=== PATIENT | male | born 1985 | race Caucasian/White ===

== ENCOUNTER 2016-05-23 14:39 | Emergency (ER) | payer OTHER ==
--- NOTE | 2016-05-23 16:15 | DIAGNOSTIC IMAGING REPORT ---
PROCEDURE: XR HAND 3 OR 4 VIEWS - RIGHT INDICATION: TRAUMA/INJURY TECHNIQUE: Four views. COMPARISON: None. FINDINGS: Osseous structures and joint spaces are normal. IMPRESSION: 1. Normal osseous structures right hand.
--- NOTE | 2016-05-23 16:30 | ED CLINICAL REPORT ---
Clinical Report - Physicians/Mid Levels [facility] [address] [place] [address] 05/23/2016 14:44 [id number] Time Seen: 15:02; initial patient contact, initial documentation, patient care assumed. Arrived- By private vehicle. Historian- patient. HISTORY OF PRESENT ILLNESS Chief Complaint: Injury to the right hand. The injury happened today. The patient sustained a laceration from a sharp edge (between two pieces of steel). Occurred at work. Patient is experiencing moderate pain. Patient denies injury to the head or neck. No other injury. 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 REVIEW OF SYSTEMS The patient sustained a laceration. No swelling, tingling, numbness, weakness or foreign body. All systems otherwise negative, except as recorded above. PAST HISTORY See nurses notes. PAST MEDICAL HX: Negative. Tetanus status: up-to-date. Last tetanus: (2012). SURGERY HX: Appendectomy. The patient's dominant hand is the left. Tetanus immunization status is up-to-date. SOCIAL HISTORY Never smoker. Occasional alcohol use. No drug use. No recent travel. Is a local resident. He lives with spouse. FAMILY HISTORY No significant family medical history. ADDITIONAL NOTES The nursing notes have been reviewed with agreement regarding the chief complaint, HPI, ROS, PMH and patient medications and allergies. PHYSICAL EXAM Vital Signs: 05/23/2016 15:02 BP: 133/62. HR: 71. RR: 18. O2 saturation: 97%. Temp: 98.2 F. Pain level now: 5/10. Have been reviewed as normal and appear to be correct. Appearance: Alert. Oriented X3. No acute distress. Extremities: Hand injury present. Right index-middle finger web space: moderate tenderness and subcutaneous 5.0 cm laceration. SEE LACERATION PROCEDURE NOTE #1. Neurovascular intact distally. No erythema, swelling, abrasion, ecchymosis or puncture wound. No foreign body or deformity. No limitation in movement. No wrist injury. Hand and wrist exam otherwise negative. Extremities otherwise negative. Neuro, Vascular and Tendons: Vascular status intact. Sensation intact. Motor intact. Tendon function intact. LABS, X-RAYS, AND EKG X-Rays: Right hand negative. Rt Hand X-ray: (IMPRESSION: 1. Normal osseous structures right hand. Electronically Final signed by:Kameron Currie MD 05/23/2016 4:16:05 PM). The X-rays were interpreted by the radiologist and contemporaneously by me. PROGRESS AND PROCEDURES Laceration Repair: Location: right hand. Length: 5 cm. Complexity: simple (local anesthesia used and sutured). Wound depth/shape- subcutaneous, linear and irregular and involving fascia. Contamination present. No foreign body or contused tissue present. No tissue loss. Exam note: with ? grease/oil. Distal neuro/vascular/tendon status normal. Tendon not examined. No tendon deficit or laceration or tendon injury. Local anesthesia provided using 1% lidocaine (8 mL). Prepped with Betadine and Hibiclens. Wound prep- had pt wash hand with hibiclens sponge at sink. Wound explored, cleansed, irrigated and examined to the base in bloodless field extensively with normal saline. Wound not debrided. No foreign material removed. used 500ml ns for irrigation. Closure of skin: interrupted 3-0 nylon (9 sutures). Post-procedure: he is stable and there are no complications. Bleeding is controlled and neuro-vascular status is intact distal to the wound. Clean dressing applied. (per tech/nurse, see other notes). Tetanus immunization up-to-date. Estimated blood loss: 10 mL. Course of Care: 16:30 05/23/16. L&I paperwork completed. 05/23/2016 16:19 BP: 117/46. HR: 68. RR: 18. O2 saturation: 99%. Pain level now: 02/26. Vital Signs: have been reviewed as normal and appear to be correct. Patient counseled in person regarding the patient's stable condition, test results and diagnosis. 16:25. Differential Diagnosis: Other possible considerations: hand lac, fb, skin avulsion, tendon injury, bone injury. Above considerations are based on history, physical exam, reassessment and X-Ray data. Differential diagnosis was discussed with patient. Disposition: Discharged home in good and improved condition (16:30). Condition: good and stable. CLINICAL IMPRESSION Single deep laceration to the right hand.Treatment of laceration not delayed. No infection, foreign body present or right fingernail injury. INSTRUCTIONS Protect wound and keep wound area clean. Change dressing twice daily. Soak in warm soapy water. Apply bacitracin twice daily. Sutures should be removed in fourteen days. Limit use of your right hand for two weeks until released (until sutures are removed). Warnings: GENERAL WARNINGS: Return or contact your physician immediately if your condition worsens or changes unexpectedly, if not improving as expected, or if other problems arise. Specifically return if problem worsens. Prescription Medications: Cephalexin 500 mg: take 1 capsule orally every 12 hours for 10 days. No refill. Ultram 50 mg tablets: take 1-2 orally every 6 hours as needed for pain. Dispense twenty (20). No refills. Substitution is permissible. Follow-up: Follow up with your doctor in about three days for suture removal and wound check. Call for an appointment. Reason for referral: wound needs rechecked in 3 days, and sutures out in 2 weeks, as discussed. Summary of care provided to patient. Understanding of the discharge instructions verbalized by patient. (Electronically signed by Maggie Hargrove A.R.N.P. 05/23/2016 18:17)
--- NOTE | 2016-05-23 16:30 | ED ORDER SUMMARY ---
..... Patient: NYDIA FLAHERTY OrderSheet [facility] VisitID: [id number] [address] [place] [address] 31y, M Registration Date/Time: 05/23/2016 ORDER SHEET Weight: 122.4 kg (stated) Allergies: No Known Drug Allergy GENERAL ORDERS: Hand 3 or 4V Right Urgent (15:08 05/23/2016 HBivens A.R.N.P.) (Ack 15:13 RKaruga) (16:02 DDean R.N.) Suture Set-up: (15:08 05/23/2016 HBivens A.R.N.P.) (15:15 DDean R.N.) MEDICATION ORDERS: Lidocaine Injection 1% plain (NOW) (15:08 05/23/2016 HBivens A.R.N.P.) (Ack 15:15 DDean R.N.) (16:03 DDean R.N.) IV FLUIDS: ORDER SHEET NOTES: [Electronically signed by Tiffany Nunez R.N. (17:13 05/23/2016)] [Electronically signed by Maggie Hargrove A.R.N.P. (18:17 05/23/2016)] [Electronically locked/signed by Tiffany Nunez R.N. (17:13 05/23/2016)]
--- NOTE | 2016-05-23 16:30 | ED NURSING NOTES ---
Clinical Report - Nurses [facility] [address] [place] [address] 05/23/2016 14:44 [id number] TRI[facility] Triage time 1502. Acuity: LEVEL 3. Chief Complaint: INJURY TO RIGHT HAND. INJURY TO THE RIGHT HAND. YUNI COMA SCORE: [place] Coma Scale: 15- eyes open spontaneously (4); best verbal response- oriented x 4 (5); best motor response- obeys commands (6). --15:13 Fatemeh Hawkins R.N. 15:02 05/23/16. BP: 133/62. HR: 71. RR: 18. O2 saturation: 97% on room air. Temp: 98.2 F. Pain level now: 06/26. --15:13 Fatemeh Hawkins R.N. Weight: 122.4 kg stated. Height/Length: 74 inches Per Patient. BMI: 34.7. --15:11 Fatemeh Hawkins R.N. Medications None. --15:11 Fatemeh Hawkins R.N. Allergies No Known Drug Allergy. --15:11 Fatemeh Hawkins R.N. History Arrived by private vehicle. Historian: patient. Accompanied by friend. Primary physician (princess wilson). This occurred (1230). He sustained a laceration from a sharp edge (lac between bases of 2 and 3rd fingers MP joint areas. Pt has good distal color, temp cap refill and pulses to both hands. good flextion and extension of both fingers). PAST MEDICAL HX: Negative. Tetanus status: up-to-date. Last tetanus: (2012). SURGERY HX: Appendectomy. SOCIAL HX: Never smoker. Occasional alcohol use. No drug use. --15:13 Fatemeh Hawkins R.N. Interventions ID band on patient. To treatment room. --15:13 Fatemeh Hawkins R.N. PHYSICAL ASSESSMENT 15:05. Ambulatory to room. GENERAL / NEURO / PSYCH: Oriented X 4. Appears in no acute distress. Appears anxious. EXTREMITIES: Capillary refill is less than 2 seconds in the extremities. Extremity pulses are within normal limits. Extremities exhibit normal ROM. Neuro-vascular status intact to the extremity. Right hand web space: (2CM lac between 2nd and 3rd finger MP joint area - has good C/S/M/T to both fingers, good flextion and extension of both fingers). SKIN: Skin is warm and dry. --15:15 Fatemeh Hawkins R.N. NURSING PROGRESS NOTES 15:02. Extremity elevated. Reassurance given. Patient identifiers checked. Call light placed in reach. Side rails up. Bed placed in lowest position. Patient ready for evaluation- chart flagged. --15:13 Fatemeh Hawkins R.N. 15:15 05/23/2016 Lidocaine Injection Injectable 1 % given. (placed at bedside for use by ERNP). --16:03 Fatemeh Hawkins R.N. 15:21 05/23/16. ( Port x-ray at bedside to do hand films). --15:21 Fatemeh Hawkins R.N. 15:56 05/23/16. WOUND REPAIR: Wound repair performed by REINFORCING STEEL ERECTOR. Assisted by one nurse. The wound is located on the right hand. The wound is irregular. Preparation: suture tray set-up with 1% lidocaine. Wound cleansed per REINFORCING STEEL ERECTOR with sterile saline and irrigated per REINFORCING STEEL ERECTOR with sterile saline using a syringe. Procedure: wound repaired with sutures (2 suture packets used). Post-procedure: he was stable, bleeding controlled, neuro-vascular status intact distal to wound and dressing applied. Total time of assist / procedure: 30 minutes. --15:56 Fatemeh Hawkins R.N. 16:05. Applied clean bulky dressing consisting of adaptic and 4x4 gauze, following the application of antibiotic ointment. Secured with tape and kerlix. --16:16 Fatemeh Hawkins R.N. 16:45. Reassessment after wound repair. He is calm. Overall patient status is improved. GENERAL / NEURO / PSYCH: Alert. Oriented X 4. RESPIRATORY: No respiratory distress. SKIN: Skin is warm and dry. --17:07 Tiffany Nunez R.N. DISPOSITION / DISCHARGE 16:19 05/23/16. BP: 117/46. HR: 68. RR: 18. O2 saturation: 99%. Temp: deferred. Pain level now: 02/26. --16:20 Fatemeh Hawkins R.N. Condition at departure: improved and stable. No learning barriers present. Discharge instructions provided and reviewed with the patient. Reviewed wound care instructions. Patient and fare register repairer verbalized understanding. Written instructions provided in Fijian. The patient was discharged home and accompanied by fare register repairer. He left the Emergency Department ambulatory and via private vehicle. Infantry Operations Specialist driving. --16:24 Fatemeh Hawkins R.N. Departure time: 1645. --17:07 Tiffany Nunez R.N. Locked/Released at 05/23/2016 17:13 by Tiffany Nunez R.N.
--- NOTE | 2016-05-23 16:30 | ED NURSING NOTES ---
Clinical Report - Nurses [facility] [address] [place] [address] 05/23/2016 14:44 [id number] TRIAGE Triage time 1502. Acuity: LEVEL 3. Chief Complaint: INJURY TO RIGHT HAND. INJURY TO THE RIGHT HAND. YUNI COMA SCORE: [place] Coma Scale: 15- eyes open spontaneously (4); best verbal response- oriented x 4 (5); best motor response- obeys commands (6). --15:13 Fatemeh Hawkins R.N. 15:02 05/23/16. BP: 133/62. HR: 71. RR: 18. O2 saturation: 97% on room air. Temp: 98.2 F. Pain level now: 06/26. --15:13 Fatemeh Hawkins R.N. Weight: 122.4 kg stated. Height/Length: 74 inches Per Patient. BMI: 34.7. --15:11 Fatemeh Hawkins R.N. Medications None. --15:11 Fatemeh Hawkins R.N. Allergies No Known Drug Allergy. --15:11 Fatemeh Hawkins R.N. History Arrived by private vehicle. Historian: patient. Accompanied by friend. Primary physician (princess wilson). This occurred (1230). He sustained a laceration from a sharp edge (lac between bases of 2 and 3rd fingers MP joint areas. Pt has good distal color, temp cap refill and pulses to both hands. good flextion and extension of both fingers). PAST MEDICAL HX: Negative. Tetanus status: up-to-date. Last tetanus: (2012). SURGERY HX: Appendectomy. SOCIAL HX: Never smoker. Occasional alcohol use. No drug use. --15:13 Fatemeh Hawkins R.N. Interventions ID band on patient. To treatment room. --15:13 Fatemeh Hawkins R.N. PHYSICAL ASSESSMENT 15:05. Ambulatory to room. GENERAL / NEURO / PSYCH: Oriented X 4. Appears in no acute distress. Appears anxious. EXTREMITIES: Capillary refill is less than 2 seconds in the extremities. Extremity pulses are within normal limits. Extremities exhibit normal ROM. Neuro-vascular status intact to the extremity. Right hand web space: (2CM lac between 2nd and 3rd finger MP joint area - has good C/S/M/T to both fingers, good flextion and extension of both fingers). SKIN: Skin is warm and dry. --15:15 Fatemeh Hawkins R.N. NURSING PROGRESS NOTES 15:02. Extremity elevated. Reassurance given. Patient identifiers checked. Call light placed in reach. Side rails up. Bed placed in lowest position. Patient ready for evaluation- chart flagged. --15:13 Fatemeh Hawkins R.N. 15:15 05/23/2016 Lidocaine Injection Injectable 1 % given. (placed at bedside for use by ERNP). --16:03 Fatemeh Hawkins R.N. 15:21 05/23/16. ( Port x-ray at bedside to do hand films). --15:21 Fatemeh Hawkins R.N. 15:56 05/23/16. WOUND REPAIR: Wound repair performed by CROP NUTRITION SCIENTIST. Assisted by one nurse. The wound is located on the right hand. The wound is irregular. Preparation: suture tray set-up with 1% lidocaine. Wound cleansed per CROP NUTRITION SCIENTIST with sterile saline and irrigated per CROP NUTRITION SCIENTIST with sterile saline using a syringe. Procedure: wound repaired with sutures (2 suture packets used). Post-procedure: he was stable, bleeding controlled, neuro-vascular status intact distal to wound and dressing applied. Total time of assist / procedure: 30 minutes. --15:56 Fatemeh Hawkins R.N. 16:05. Applied clean bulky dressing consisting of adaptic and 4x4 gauze, following the application of antibiotic ointment. Secured with tape and kerlix. --16:16 Fatemeh Hawkins R.N. 16:45. Reassessment after wound repair. He is calm. Overall patient status is improved. GENERAL / NEURO / PSYCH: Alert. Oriented X 4. RESPIRATORY: No respiratory distress. SKIN: Skin is warm and dry. --17:07 Tiffany Nunez R.N. DISPOSITION / DISCHARGE 16:19 05/23/16. BP: 117/46. HR: 68. RR: 18. O2 saturation: 99%. Temp: deferred. Pain level now: 02/26. --16:20 Fatemeh Hawkins R.N. Condition at departure: improved and stable. No learning barriers present. Discharge instructions provided and reviewed with the patient. Reviewed wound care instructions. Patient and copy editor verbalized understanding. Written instructions provided in Austrian. The patient was discharged home and accompanied by copy editor. He left the Emergency Department ambulatory and via private vehicle. Tool And Equipment Rental Clerk driving. --16:24 Fatemeh Hawkins R.N. Departure time: 1645. --17:07 Tiffany Nunez R.N. Locked/Released at 05/23/2016 17:13 by Tiffany Nunez R.N.
--- NOTE | 2016-05-23 16:30 | ED ORDER SUMMARY ---
..... Patient: NYDIA FLAHERTY OrderSheet [facility] VisitID: [id number] [address] [place] [address] 31y, M Registration Date/Time: 05/23/2016 ORDER SHEET Weight: 122.4 kg (stated) Allergies: No Known Drug Allergy GENERAL ORDERS: Hand 3 or 4V Right Urgent (15:08 05/23/2016 HBivens A.R.N.P.) (Ack 15:13 RKaruga) (16:02 DDean R.N.) Suture Set-up: (15:08 05/23/2016 HBivens A.R.N.P.) (15:15 DDean R.N.) MEDICATION ORDERS: Lidocaine Injection 1% plain (NOW) (15:08 05/23/2016 HBivens A.R.N.P.) (Ack 15:15 DDean R.N.) (16:03 DDean R.N.) IV FLUIDS: ORDER SHEET NOTES: [Electronically signed by Tiffany Nunez R.N. (17:13 05/23/2016)] [Electronically signed by Maggie Hargrove A.R.N.P. (18:17 05/23/2016)] [Electronically locked/signed by Tiffany Nunez R.N. (17:13 05/23/2016)]
--- NOTE | 2016-05-23 18:18 | ED MAR SUMMARY ---
..... Medication Administration Record [address] [place] [address] Patient: NYDIA FLAHERTY Visit ID: [id number] 31y, M Weight: 122.4 kg Height/Length: 74 in BMI: 34.7 ALLERGIES: No Known Drug Allergy Given 15:15 05/23/2016 Ross, Fatemeh RFloresita. Medication Administered: LIDOCAINE [INJECTION], Dose: 1 % Injectable Injection. Medication Ordered: Lidocaine Injection 1% plain (NOW).
--- NOTE | 2016-05-23 18:18 | ED MAR SUMMARY ---
..... Medication Administration Record [address] [place] [address] Patient: NYDIA FLAHERTY Visit ID: [id number] 31y, M Weight: 122.4 kg Height/Length: 74 in BMI: 34.7 ALLERGIES: No Known Drug Allergy Given 15:15 05/23/2016 Ross, Fatemeh RFloresita. Medication Administered: LIDOCAINE [INJECTION], Dose: 1 % Injectable Injection. Medication Ordered: Lidocaine Injection 1% plain (NOW).
--- NOTE | 2016-05-23 18:18 | ED MED RECONCILIATION SUMMARY ---
Patient: NYDIA FLAHERTY Medication Reconciliation Report [facility] VisitID: [id number] [address] [place] [address] 31y, M Registration Date/Time: 05/23/2016 Weight: 122.4 kg Height/Length: 74 in. BMI: 34.7 ALLERGIES: No Known Drug Allergy The patient's Home Medications are listed below: NONE. The source(s) of the original Home Medication information: Not obtained. The following Medications were given to the patient in the Emergency Department: Lidocaine [Injection] Injection 1 %, administered: 05/23/2016 3:15:00 PM The following Medications were prescribed to the patient: Cephalexin 500 mg: take 1 capsule orally every 12 hours for 10 days. No refill. -- Maggie Hargrove, [place].R.N.P. Ultram 50 mg tablets: take 1-2 orally every 6 hours as needed for pain. Dispense twenty (20). No refills. Substitution is permissible. -- Maggie Hargrove A.R.N.P.
--- NOTE | 2016-05-23 18:18 | ED MED RECONCILIATION SUMMARY ---
Patient: NYDIA FLAHERTY Medication Reconciliation Report [facility] VisitID: [id number] [address] [place] [address] 31y, M Registration Date/Time: 05/23/2016 Weight: 122.4 kg Height/Length: 74 in. BMI: 34.7 ALLERGIES: No Known Drug Allergy The patient's Home Medications are listed below: NONE. The source(s) of the original Home Medication information: Not obtained. The following Medications were given to the patient in the Emergency Department: Lidocaine [Injection] Injection 1 %, administered: 05/23/2016 3:15:00 PM The following Medications were prescribed to the patient: Cephalexin 500 mg: take 1 capsule orally every 12 hours for 10 days. No refill. -- Maggie Hargrove, [place].R.N.P. Ultram 50 mg tablets: take 1-2 orally every 6 hours as needed for pain. Dispense twenty (20). No refills. Substitution is permissible. -- Maggie Hargrove A.R.N.P.
--- NOTE | 2016-05-23 18:18 | ED DISCHARGE INSTRUCTIONS ---
Patient: NYDIA FLAHERTY General Instructions [facility] VisitID: [id number] [place] [address] 31y, M Registration Date/Time: 05/23/2016 Single deep laceration to the right hand.Treatment of laceration not delayed. No infection, foreign body present or right fingernail injury. INSTRUCTIONS Protect wound and keep wound area clean. Change dressing twice daily. Soak in warm soapy water. Apply bacitracin twice daily. Sutures should be removed in fourteen days. Limit use of your right hand for two weeks until released (until sutures are removed). Warnings: GENERAL WARNINGS: Return or contact your physician immediately if your condition worsens or changes unexpectedly, if not improving as expected, or if other problems arise. Specifically return if problem worsens. Prescription Medications: Cephalexin 500 mg: take 1 capsule orally every 12 hours for 10 days. No refill. Ultram 50 mg tablets: take 1-2 orally every 6 hours as needed for pain. Dispense twenty (20). No refills. Substitution is permissible. Follow-up: Follow up with your doctor in about three days for suture removal and wound check. Call for an appointment. Reason for referral: wound needs rechecked in 3 days, and sutures out in 2 weeks, as discussed. Summary of care provided to patient. Understanding of the discharge instructions verbalized by patient. ADDITIONAL INFORMATION Laceration (All Closures) Alaceration is a cut through the skin. This will usually require stitches (sutures) or floridalma if it is deep. Minor cuts may be treated with a surgical tape closure orskin glue. Home care The following guidelines will help you care for your laceration at home: Extremity, face, or trunk wounds Keep the wound clean and dry. If a bandage was applied and it becomes wet or dirty, replace it. Otherwise, leave it in place for the first 24 hours. If stitches or floridalma were used, clean the wound daily. After removing the bandage, wash the area with soap and water. Use a wet cotton swab to loosen and remove any blood or crust that forms. The doctor may prescribe an antibiotic cream or ointment to prevent infection. Do not stop taking this medication until you have finished the prescribed course or the doctor tells you to stop. The doctor may also prescribe medications for pain. Follow the doctors instructions for taking these medications. You may remove the bandage to shower as usual after the first 24 hours, but do not soak the area in water (no swimming) until the stitches or floridalma are removed. If surgical tape was used, keep the area clean and dry. If it becomes wet, blot it dry with a towel. If skin glue was used, do not scratch, rub, or pick at the adhesive film. Do not place tape directly over the film. Do not apply liquid, ointment, or creams to the wound while the film is in place. Do not clean the wound with peroxide and do not apply ointments. Avoid activities that cause heavy sweating until the film has fallen off. Protect the wound from prolonged exposure to sunlight or tanning lamps. You may shower as usual but do not soak the wound in water (no baths or swimming). The film will fall off by itself in 510 days. Scalp wounds During the first two days, you may carefully rinse your hair in the shower to remove blood, glass or dirt particles. After two days, you may shower and shampoo your hair normally. Do not soak your scalp in the tub or go swimming until the stitches or floridalma have been removed. Talk with your doctor before applying any antibiotic ointment to the wound. Mouth wounds Eat soft foods to reduce pain. If the cut is inside of your mouth, clean by rinsing after each meal and at bedtime with a mixture of equal parts water and hydrogen peroxide (do not swallow!). Or, you can use a cotton swab to directly apply hydrogen peroxide onto the cut. Mouth wounds can be painful when eating. You may use an [id number]-nzkhmle local numbing solution for pain relief. If this is not available, you may use any numbing solution for teething babies. You may apply this directly to the sores with a cotton-tip swab or with your finger. Follow-up care Follow up with your health care provider. Most skin wounds heal within ten days. Mouth and facial wounds heal within five days. However, even with proper treatment, a wound infection may sometimes occur. Therefore, you should check the wound daily for signs of infection listed below. Stitches should be removed from the face within five days; stitches and floridalma should be removed from other parts of the body within 714 days. If dissolving stitches were used in the mouth, these will fall out or dissolve without the need for removal. If tape closures were used, remove them yourself if they have not fallen off after 7 days. Ifskin glue was used, the film will fall off by itself in 510 days. When to seek medical care Get prompt medical attention if any of these occur: Bleeding not controlled by direct pressure Signs of infection, including increasing pain in the wound, increasing wound redness or swelling, or pus coming from the wound Fever of 100.4F (38C) or higher, or as directed by your health care provider Stitches or floridalma come apart or fall out or surgical tape falls off before 7 days Wound edges re-open Laceration, Extremity (Sutures, Drake, Or Tape) A laceration is a cut through the skin. This will usually require stitches (sutures) or floridalma if it is deep. Minor cuts may be treated with surgical tape closures. Home care The following guidelines will help you care for your laceration at home: Keep the wound clean and dry. If a bandage was applied and it becomes wet or dirty, replace it. Otherwise, leave it in place for the first 24 hours, then change it once a day or as directed. If stitches or floridalma were used, clean the wound daily: After removing the bandage, wash the area with soap and water. Use a wet cotton swab to loosen and remove any blood or crust that forms. After cleaning, keep the wound clean and dry. Talk with your doctor before applying any antibiotic ointment to the wound. Reapply the bandage. You may remove the bandage to shower as usual after the first 24 hours, but do not soak the area in water (no swimming) until the stitches or floridalma are removed. If surgical tape closures were used, keep the area clean and dry. If it becomes wet, blot it dry with a towel. The doctor may prescribe an antibiotic cream or ointment to prevent infection. Do not stop taking this medication until you have finished the prescribed course or the doctor tells you to stop. The doctor may also prescribe medications for pain. Follow the doctors instructions for taking these medications. If you have chronic liver or kidney disease or ever had a stomach ulcer or GI bleeding, talk with your doctor before using these medicines. Follow-up care Follow up with your health care provider. Most skin wounds heal within ten days. However, an infection may sometimes occur despite proper treatment. Therefore, check the wound daily for the signs of infection listed below. Stitches and floridalma should be removed within 714 days. If surgical tape closures were used, you may remove them after 10 days, if they have not fallen off by then. Notify your doctor if you notice persistent numbness or weakness in the injured extremity. (Note:A radiologist will review any X-rays that were taken. We will notify you of any new findings that may affect your care.) When to seek medical care Get prompt medical attention if any of these occur: Increasing pain in the wound Redness, swelling, or pus coming from the wound Fever of 100.4F (38C) or higher, or as directed by your health care provider If stitches or floridalma come apart or fall out before your next appointment If the surgical tape closures fall off within seven days, or the wound edges re-open Bleeding not controlled by direct pressure Cephalexin Monohydrate Oral tablet What is this medicine? CEPHALEXIN (sef a HERMES in) is a cephalosporin antibiotic. It is used to treat certain kinds of bacterial infections It will not work for colds, flu, or other viral infections. How should I use this medicine? Take this medicine by mouth with a full glass of water. Follow the directions on the prescription label. This medicine can be taken with or without food. Take your medicine at regular intervals. Do not take your medicine more often than directed. Take all of your medicine as directed even if you think you are better. Do not skip doses or stop your medicine early. Talk to your pillowcase cleaner regarding the use of this medicine in children. While this drug may be prescribed for selected conditions, precautions do apply. What side effects may I notice from receiving this medicine? Side effects that you should report to your doctor or health customer care representative as soon as possible: allergic reactions like skin rash, itching or hives, swelling of the face, lips, or tongue breathing problems pain or trouble passing urine redness, blistering, peeling or loosening of the skin, including inside the mouth severe or watery diarrhea unusually weak or tired yellowing of the eyes, skin Side effects that usually do not require medical attention (report to your doctor or health customer care representative if they continue or are bothersome): gas or heartburn genital or anal irritation headache joint or muscle pain nausea, vomiting What may interact with this medicine? probenecid some other antibiotics What if I miss a dose? If you miss a dose, take it as soon as you can. If it is almost time for your next dose, take only that dose. Do not take double or extra doses. There should be at least 4 to 6 hours between doses. Where should I keep my medicine? Keep out of the reach of children. Store at room temperature between 59 and 86 degrees F (15 and 30 degrees C). Throw away any unused medicine after the expiration date. What should I tell my health care provider before I take this medicine? They need to know if you have any of these conditions: kidney disease stomach or intestine problems, especially colitis an unusual or allergic reaction to cephalexin, other cephalosporins, penicillins, other antibiotics, medicines, foods, dyes or preservatives or trying to get breast-feeding What should I watch for while using this medicine? Tell your doctor or health customer care representative if your symptoms do not begin to improve in a few days. Do not treat diarrhea with over the counter products. Contact your doctor if you have diarrhea that lasts more than 2 days or if it is severe and watery. If you have diabetes, you may get a false-positive result for sugar in your urine. Check with your doctor or health customer care representative. Tramadol Hydrochloride Oral tablet What is this medicine? TRAMADOL (TRA ma dole) is a pain reliever. It is used to treat moderate to severe pain in adults. How should I use this medicine? Take this medicine by mouth with a full glass of water. Follow the directions on the prescription label. If the medicine upsets your stomach, take it with food or milk. Do not take more medicine than you are told to take. Talk to your pillowcase cleaner regarding the use of this medicine in children. Special care may be needed. What side effects may I notice from receiving this medicine? Side effects that you should report to your doctor or health customer care representative as soon as possible: allergic reactions like skin rash, itching or hives, swelling of the face, lips, or tongue breathing difficulties, wheezing confusion itching light headedness or fainting spells redness, blistering, peeling or loosening of the skin, including inside the mouth seizures Side effects that usually do not require medical attention (report to your doctor or health customer care representative if they continue or are bothersome): constipation dizziness drowsiness headache nausea, vomiting What may interact with this medicine? Do not take this medicine with any of the following medications: MAOIs like Carbex, Eldepryl, Marplan, Nardil, and Parnate This medicine may also interact with the following medications: alcohol or medicines that contain alcohol antihistamines benzodiazepines bupropion carbamazepine or oxcarbazepine clozapine cyclobenzaprine digoxin furazolidone linezolid medicines for depression, anxiety, or psychotic disturbances medicines for migraine headache like almotriptan, eletriptan, frovatriptan, naratriptan, rizatriptan, sumatriptan, zolmitriptan medicines for pain like pentazocine, buprenorphine, butorphanol, meperidine, nalbuphine, and propoxyphene medicines for sleep muscle relaxants naltrexone phenobarbital phenothiazines like perphenazine, thioridazine, chlorpromazine, mesoridazine, fluphenazine, prochlorperazine, promazine, and trifluoperazine procarbazine warfarin What if I miss a dose? If you miss a dose, take it as soon as you can. If it is almost time for your next dose, take only that dose. Do not take double or extra doses. Where should I keep my medicine? Keep out of the reach of children. Store at room temperature between 15 and 30 degrees C (59 and 86 degrees F). Keep container tightly closed. Throw away any unused medicine after the expiration date. What should I tell my health care provider before I take this medicine? They need to know if you have any of these conditions: brain tumor depression drug abuse or addiction head injury if you frequently drink alcohol containing drinks kidney disease or trouble passing urine liver disease lung disease, asthma, or breathing problems seizures or epilepsy suicidal thoughts, plans, or attempt; a previous suicide attempt by you or a family member an unusual or allergic reaction to tramadol, codeine, other medicines, foods, dyes, or preservatives or trying to get breast-feeding What should I watch for while using this medicine? Tell your doctor or health customer care representative if your pain does not go away, if it gets worse, or if you have new or a different type of pain. You may develop tolerance to the medicine. Tolerance means that you will need a higher dose of the medicine for pain relief. Tolerance is normal and is expected if you take this medicine for a long time. Do not suddenly stop taking your medicine because you may develop a severe reaction. Your body becomes used to the medicine. This does NOT mean you are addicted. Addiction is a behavior related to getting and using a drug for a non-medical reason. If you have pain, you have a medical reason to take pain medicine. Your doctor will tell you how much medicine to take. If your doctor wants you to stop the medicine, the dose will be slowly lowered over time to avoid any side effects. You may get drowsy or dizzy. Do not drive, use machinery, or do anything that needs mental alertness until you know how this medicine affects you. Do not stand or sit up quickly, especially if you are an older patient. This reduces the risk of dizzy or fainting spells. Alcohol can increase or decrease the effects of this medicine. Avoid alcoholic drinks. You may have constipation. Try to have a bowel movement at least every 2 to 3 days. If you do not have a bowel movement for 3 days, call your doctor or health customer care representative. Your mouth may get dry. Chewing sugarless gum or sucking hard candy, and drinking plenty of water may help. Contact your doctor if the problem does not go away or is severe. You have been given the following additional information: Laceration, All Laceration, Extrem (Suture, Staple, Or Tape) Cephalexin Monohydrate Oral tablet Tramadol Hydrochloride Oral tablet Limit use of your right hand for two weeks until released (until sutures are removed). (Electronically signed by Maggie Hargrove A.R.N.P. 05/23/2016 18:17)
== END 2016-05-23 16:45 | disposition home or self-care (01) ==
LOC: ED SRH 14:39
DX: S61.411A Laceration without foreign body of right hand, initial encounter (principal); W26.8XXA Contact with other sharp object(s), not elsewhere classified, initial encounter; Y93.89 Activity, other specified; Y92.69 Other specified industrial and construction area as the place of occurrence of the external cause; Y99.8 Other external cause status